=== PATIENT | female | born 1980 | race Caucasian/White ===

== ENCOUNTER → 2019-05-24 | Outpatient (CLI) | payer MEDICARE, MEDICAID | LOC: FB.MH 08:00 | PROVIDERS: ATTEND Psychiatry & Neurology Psychiatry | DX: F34.0 Cyclothymic disorder (principal); F41.1 Generalized anxiety disorder | CPT/HCPCS: 99213 ==

== ENCOUNTER 2020-07-22 23:26 | Emergency (ER) | payer MEDICARE ==
[2020-07-23] MEDS: Ketorolac 60 MG/2 ML SDV IM ONE (00:05)
--- NOTE | 2020-07-23 00:47 | EDM.PDOC ---
ED HPI GENERAL MEDICAL PROBLEM - General Stated Complaint: ARM PAIN Time Seen by Provider: 07/22/20 23:35 Source of Information: Reports: Patient History Limitations: Reports: No Limitations - History of Present Illness INITIAL COMMENTS - FREE TEXT/NARRATIVE: c/o L arm pain soreness in L biceps x 1m, no injury, not take OTC meds, not sure what she can take with trazodone Review of Systems - Review of Systems Review Of Systems: See Below Constitutional: Reports: No Symptoms Eyes: Reports: No Symptoms Ears: Reports: No Symptoms Nose: Reports: No Symptoms Mouth/Throat: Reports: No Symptoms Respiratory: Reports: No Symptoms Cardiovascular: Reports: No Symptoms GI/Abdominal: Reports: No Symptoms Genitourinary: Reports: No Symptoms Musculoskeletal: Reports: Arm Pain Skin: Reports: No Symptoms Neurological: Reports: No Symptoms Psychiatric: Reports: No Symptoms ED EXAM, GENERAL - Physical Exam Exam: See Below Exam Limited By: No Limitations General Appearance: Alert, WD/WN, No Apparent Distress Nose: Normal Inspection Head: Atraumatic Neck: Normal Inspection, Supple, Non-Tender, Full Range of Motion Respiratory/Chest: No Respiratory Distress, Lungs Clear, Normal Breath Sounds, No Accessory Muscle Use, Chest Non-Tender Cardiovascular: Regular Rate, Rhythm, No Edema Back Exam: Normal Inspection, Full Range of Motion Extremities: Other (LUE with good ROM, no spasm, no point tender, AC nontender) Neurological: Alert, Oriented, CN II-XII Intact, Normal Cognition, Normal Gait, No Motor/Sensory Deficits Psychiatric: Normal Affect, Normal Mood Skin Exam: Warm, Dry, Intact, Normal Color, No Rash Lymphatic: No Adenopathy Course - Orders/Labs/Meds Orders: Active Orders 24 hr Category Date Time Status Humerus Lt [CR] Stat Exams 07/22/20 23:57 Taken Meds: Medications Discontinued Medications Generic Name Dose Route Start Last Admin Trade Name Freq PRN Reason Stop Dose Admin Ketorolac Tromethamine 60 mg 07/22/20 23:57 07/23/20 00:05 Toradol IM 07/22/20 23:58 60 mg ONETIME ONE Administration - Re-Assessments/Exams Free Text/Narrative Re-Assessment/Exam: 07/23/20 00:46 PE neg, XR L humerus neg, appears to be soft tissue strain inc'd pain with ROM, no CV/pul issue by hx Departure - Departure Time of Disposition: 00:42 Disposition: [facility] Condition: Good Clinical Impression: Strain of upper arm, left - Discharge Information *PRESCRIPTION DRUG MONITORING PROGRAM REVIEWED*: Not Applicable *COPY OF PRESCRIPTION DRUG MONITORING REPORT IN PATIENT JHONATAN: Not Applicable Instructions: Muscle Strain Referrals: Sherri Thomas NP [Primary Care Provider] - Additional Instructions: For pain, take acetaminophen 500 mg 2 tabs or ibuprofen 200 mg 3 tabs 3 times a day for 2 days, longer if needed. Continue usual activities. See your physician in the next several days for further recommendations. - My Orders Last 24 Hours: My Active Orders 07/22/20 23:57 Humerus Lt [CR] Stat - Assessment/Plan Last 24 Hours: My Active Orders 07/22/20 23:57 Humerus Lt [CR] Stat
--- NOTE | 2020-07-23 10:02 | CR ---
INDICATION: Pain in left humerus times one month. No history of injury. LEFT HUMERUS: Four images of the left humerus in frontal and lateral projections were obtained 07/23/20 and revealed no definite bone or joint abnormality. If an occult bony abnormality is suspected clinically, nuclear bone imaging may be helpful for further evaluation. MTDD
== END 2020-07-23 00:45 | disposition home or self-care (01) ==
LOC: FB.ED 23:26
DX: S46.912A Strain of unspecified muscle, fascia and tendon at shoulder and upper arm level, left arm, initial encounter (principal); X58.XXXA Exposure to other specified factors, initial encounter
CPT/HCPCS: 73060; 96372; 99283; J1885